=== PATIENT | male | born 2000 | race Caucasian/White ===

== ENCOUNTER 2020-05-04 23:30 | Emergency (ER) | payer SELFPAY ==
[~2020-05-04] VITALS: Ht 195.6 cm; Wt 154.2 kg
--- NOTE | 2020-05-04 23:48 | NUR ---
BIBSELF C/O L KNEE PAIN X1 MONTH ON AND OFF. PT INJURED L KNEE 3 MONTHS AGO
[2020-05-04] MEDS ORDERED: ACETAMINOPHEN W/ CODEINE#3 1 EA TABLET ONE (23:56)
[2020-05-04] MEDS ORDERED: predniSONE 10 MG TABLET ONE (23:57)
[2020-05-04] MEDS ORDERED: predniSONE 20 MG TABLET ONE (23:57)
[2020-05-05] MEDS ORDERED: ACETAMINOPHEN W/ CODEINE#3 1 EA TABLET PO ONE
[2020-05-05] MEDS ORDERED: predniSONE 50 MG TABLET PO ONE
[2020-05-05] MEDS ORDERED: IBUP-1957 PO (00:19)
--- NOTE | 2020-05-05 00:29 | NUR ---
Patient discharged to home in stable condition. Written and verbal after care instructions given. Patient verbalizes understanding of instruction and RX.
[2020-05-05 00:30] VITALS: BP 141/82
== END 2020-05-05 00:30 | disposition home or self-care (01) ==
LOC: ER 23:33
DX: M25.562 Pain in left knee (principal)
CPT/HCPCS: 73564; 99283; J7512 ×2